=== PATIENT | female | born 1975 | race Caucasian/White ===

== ENCOUNTER → 2018-07-30 08:55 | Outpatient (CLI) | payer OTHER, SELFPAY ==
--- NOTE | 2018-07-30 08:58 | US_ITS ---
STUDY: THYROID ULTRASOUND REASON FOR EXAM: Female, 42 years old. Thyroid nodules. TECHNIQUE: Ultrasound evaluation of the thyroid was performed with real-time and static silva-scale imaging. COMPARISON: September 25, 2016. FINDINGS: RIGHT LOBE: The right lobe of the thyroid gland measures 4.5 x 1.9 x 1.3 cm. There is a homogeneous echotexture. Mid and lower pole cystic and solid nodules measuring 0.5 and 0.4 x 0.5 cm and 1.0 x 1.1 x 0.5 cm respectively. The mid pole cystic nodule has remained stable. The lower pole solid nodule is new. LEFT LOBE: The left lobe of the thyroid gland measures 4.4 x 1.4 x 1.4 cm. There is a homogeneous echotexture. There are now no demonstrated solid, cystic or complex lesions. ISTHMUS: The isthmus measures 3 mm. . The regional lymph nodes are normal. US/Thyroid IMPRESSION: New 1.1 cm solid nodule inferior pole right lobe. Stable subcentimeter cystic nodule midpole right lobe. Electronically Signed: Joni Osborne MD at 6:24 EDT , Service support ,
--- NOTE | 2018-07-30 09:34 | RAD_ITS ---
STUDY: X-RAY - ESOPHAGUS (BARIUM SWALLOW) WITH FLUOROSCOPY REASON FOR EXAM: Female, 42 years old. Dysphagia for solids. TECHNIQUE: 22 view(s) of the esophagus were obtained following swallowing of barium. FLUOROSCOPY TIME (if supplied): (0:42) minutes/seconds COMPARISON: None. FINDINGS: There is no demonstrated esophageal foreign body. Mild circumferential narrowing at the distal aspect of the esophagus at the level gastroesophageal junction. The patient ingested 12 mm tablet of barium. The tablet passes without any difficulty into the stomach. There is atherosclerotic tortuosity of the aortic arch and descending thoracic aorta. Normal visualized pulmonary parenchyma. Normal visualized osseous structures of the thorax. RAD/Esophagus Only IMPRESSION: Mild circumferential narrowing in the distal portion of the esophagus at the level of the gastroesophageal junction. The 12 mm tablet of barium passes without any difficulty. Electronically Signed: Abad Wylie, at 15:01 EDT , Service support ,
== END ==
LOC: US 08:55
PROVIDERS: Family Provider Internal Medicine; PCP Internal Medicine; Referring Provider Internal Medicine; Visit Provider Internal Medicine
DX: E04.2 Nontoxic multinodular goiter (principal); R13.10 Dysphagia, unspecified
CPT/HCPCS: 74220; 76536

== ENCOUNTER → 2018-08-12 15:54 | Outpatient (CLI) | payer OTHER, SELFPAY ==
[2018-08-12 07:52] VITALS: BMI 32.3
--- NOTE | 2018-08-12 16:00 | CT_ITS ---
STUDY: CT SOFT TISSUE NECK WITH CONTRAST REASON FOR EXAM: Female, 42 years old. Right-sided neck mass RADIATION DOSAGE (If Supplied By Facility): CTDIvol = ( 23.55 ) mGy, DLP = ( 723.43 ) mGycm TECHNIQUE: The patient was scanned in a multi-detector CT scanner. High resolution transaxial imaging was performed following intravenous administration of 100 ml of Isovue 300. Sagittal and coronal images were reconstructed. Individualized dose optimization techniques were used for this CT. COMPARISON: None. FINDINGS: Normal bilateral parotid glands. Normal bilateral ross furnace operator spaces. Normal bilateral parapharyngeal spaces. Normal bilateral carotid spaces. Normal bilateral sublingual and submandibular glands and spaces. Normal visualized nasopharynx. Normal retropharyngeal space. Normal perivertebral space. Normal visualized bilateral faucial tonsils. The visualized tongue, tongue base and oropharynx are normal. The visualized cervical lymph nodes (levels I-) are within normal size limits, and maintain normal morphology. There is no demonstrated solid or cystic mass lesion. There is no abnormal contrast enhancement. Normal epiglottis, bilateral vallecula and hypopharynx. The pre-epiglottic and paraglottic adipose spaces are normal. Normal visualized bilateral piriform sinuses, aryepiglottic folds, vocal cords, and arytenoid-cricoid articulations. Normal subglottic trachea. There is a small nodule in right lobe of the thyroid measuring approximately 3. Overall millimeters. The thyroid otherwise has a normal appearance. Normal visualized pulmonary apices. There is mild mucoperiosteal thickening within the right maxillary sinus. There is opacification of several posterior ethmoid sinuses. Normal visualized cervical spine. No clearly demonstrated subcutaneous or deep asymmetric neck mass noted. CT/Soft Tissue Neck WITH Contrast IMPRESSION: 1. There is no evidence for a soft tissue mass to explain the palpable abnormality. The exact location of the palpable abnormality is unknown at the time of dictation. 2. Small right-sided thyroid nodule. Mild maxillary sinus disease. Electronically Signed: Layla Becerril MD at 8:59 EDT , Service support ,
== END ==
LOC: CT 15:58
PROVIDERS: Family Provider Internal Medicine; PCP Internal Medicine; Referring Provider Internal Medicine; Visit Provider Internal Medicine
DX: R22.1 Localized swelling, mass and lump, neck (principal)
CPT/HCPCS: 70491; Q9967

== ENCOUNTER → 2018-08-22 12:04 | Outpatient (CLI) | payer OTHER, SELFPAY ==
[2018-08-12 07:52] VITALS: BMI 32.3
--- NOTE | 2018-08-22 12:09 | US_ITS ---
STUDY: THYROID ULTRASOUND REASON FOR EXAM: Female, 42 years old. Right thyroid nodule FNA biopsy. Ultrasound services provided for clinical procedure. Please refer to operating physician's procedure note for additional detail. TECHNIQUE: Ultrasound evaluation of the thyroid was performed with real-time and static silva-scale imaging. COMPARISON: July 30, 2018. FINDINGS: 7 submitted static images marked transverse right thyroid are submitted for interpretation and evaluation from FNA biopsy was performed by Dr. Walters. Presumably, the hypoechoic nodule within the right thyroid lobe with echogenic internal foci measuring 0.5 cm in maximum dimension on previous sonography dated July 30, 2018 was biopsied. The technologist work sheet indicates 18-gauge core biopsy with 3 samples taken. There are no significant incidental findings. US/FNA 1st Biopsy w/ US IMPRESSION: Ultrasound services provided for clinical procedure. Please refer to operating physician's procedure note for additional detail. There is no significant incidental finding. Sonographic services provided for clinical procedure. Please refer to operating physician's procedure note for additional detail. Electronically Signed: Fly Mariano MD at 8:08 EDT , Service support ,
--- NOTE | 2018-08-22 12:35 | ASPIG_PTH ---
PATIENT: SAV WOODALL LOC: U#:[id number] AGE/SX: 49/F ROOM: RE08/22/[address]: Dr. Ramon Walters MD : 1975 BED: DIS: SPEC #: [id number] RECD: 08/22/18 13:31 STATUS: TIFFANIE JOSE CRUZ #: [id number] TRICIA: 08/22/18 12:[address]: Ramon Walters DEPT: CYTOLOGY RECD BY: Michele Eaton ENTERED: 08/22/18 13:31 SP TYPE: ASP OUT OTHR DR: Dr. Jovita Soares, DO Tissues: Thyroid gland, NOS Procedures: FNA Specimen Adequacy Special Stain Group II Surgery Specimen Level IV Cytology Other HEADER OPERATION: Ultrasound-guided right thyroid biopsy PRE-OP DIAGNOSIS: Right thyroid nodule TISSUE SUBMITTED: Right thyroid biopsy DIAGNOSIS CYTOLOGY Right thyroid nodule, ultrasound-guided right thyroid biopsy, direct smears and monolayer cytology: Atypia of undetermined significance. See comment. CE:treva 08/28/18 COMMENT The specimen is evaluated at the time of biopsy by Dr. Negrete. Immediate Evaluation = Follicular cells noted. Adequate for evaluation. Groups of collicular cells show focal nuclear crowding and grooves. A papillary thyroid neoplasm cannot be entirely excluded. This case was reviewed in consultation with Anitra Gonzalez M.D. of [facility] (Specimen ID [id number]). CYTOLOGY STUDY Slides are reviewed. CYTOLOGY GROSS Received is 0.6 ml of bloody fluid labeled with the patient's name, and designated right thyroid. Eight imprints and seven paps are made from the submitted fluid and the rest is added to CytoLyt for cell block preparation. Submitted for cytology study. / MAXIMO:treva 08/22/18 TC:5 CPT: 61669
--- NOTE | 2018-08-22 12:44 | PCM.HP.BLA ---
Problem List (1) Multinodular goiter (nontoxic) Status: Acute History and Physical Date of Admission: 08/22/18 [facility] [address] [place], [place] [address] OFFICE VISIT Date of Service: 08/06/18 MR#: [id number] Acct: [id number] Name: SAV WOODALL Rep #: [id number] : 1975 Provider: Ramon Walters MD Age/Sex: 42/F Location: [facility] Status: Signed Intake Vital Signs 08/06/18 Height 5 ft 6 in 08/06/18 Weight: 200 lb 4 oz 08/06/18 Body Mass Index (BMI) 32.3 08/06/18 Blood Pressure 131/86 H 08/06/18 Blood Pressure Location Rt brachial 08/06/18 Blood Pressure Position Sitting 08/06/18 Respiratory Rate 20 H 08/06/18 Pulse Rate 74 08/06/18 Pulse Ox 100 Intake Visit Reasons: thyroid nodule - biopsy? Chief Complaint: thyroid nodules Waterproofing Supervisor Required: No Is patient in pain?: No Allergies No Known Allergies Allergy (Verified 08/06/18 14:44) Medications atenolol 25 mg tablet 25 mg PO DAILY 08/06/18 [History Confirmed 08/06/18] norethindrone (contraceptive) 0.35 mg tablet 0.35 mg PO DAILY 08/06/18 [History Confirmed 08/06/18] Is last menstrual period known: No Post menopausal: No Patient : No PFSH Medical History Anxiety (Acute) GERD (gastroesophageal reflux disease) (Acute) Hemorrhoid (Acute) Multiple thyroid nodules (Acute) HTN (hypertension) (Chronic) Surgical History History of arthroscopic knee surgery (Acute) Status post biopsy of thyroid gland (Acute ~2014) Family History Mother Hypertension Brother Hypertension Social History Smoking Status: Never smoker HPI HPI HPI: SAV WOODALL, is a 42 F who presents to the office today for HPI HPI HPI: SAV WOODALL, is a 42 F who presents to the office today for evaluation of multinodular goiter. Patient [facility]. This showed a new 1.1 x 1 x 0.5 cm nodule in the midpole she has a stable 5 mm nodule in the midpole as well. The left lobe had no nodules located within it. She has not noticed any new neck pain she has had no change in her voice ROS General General: Yes fatigue; no weight change, appetite, colon cancer, breast cancer or weakness HEENT HEENT: Yes difficulty swallowing; no eye injury, eye surgery, swollen glands or hoarseness Endo Endocrine: No thyroid disease, diabetes mellitus, thyroid cancer, Hair loss, heat intolerance or cold intolerance Cardio Cardiovascular: Yes high blood pressure; no murmur, pacemaker, heart disease, atrial fibrillation, heart attack, heart stent, palpitations, shortness of breat with exertion or chest pain Psych Psychiatric: Yes anxiety; no depression or hearing voices Resp Respiratory: No shortness of breath, No sleep apnea, No cough, No COPD, No asthma, No emphysema, No wheezing Gastro Gastrointestinal: No abdominal pain, No nausea or vomiting, No diarrhea, No constipation, No blood in stool, Yes acid reflux, Yes hemorrhoids, No ulcers, No gallbladder problem, No black,tarry stools Neuro Neurologic: No weakness Exam [facility] Head: normocephalic, atraumatic Ears: external ears normal Mouth: moist mucous membranes Other: Thyroid Exam: No hard nodules are palpated. There is no lymphadenopathy Cardio Heart Sounds: no murmurs Assessment & Plan Problems 1. Multinodular goiter (nontoxic) E04.2 Plan My plan is to perform a fine-needle aspiration of the dominant new nodule located on the right side. Risk benefits have been reviewed with the patient to include bleeding soreness possible in fact she agrees to proceed Medications New: norethindrone (contraceptive) 0.35 mg PO DAILY Coding Level of Care Code Off vis,est,level 3 Diagnoses Multinodular goiter (nontoxic) E04.2 08/06/18 1500 <Electronically signed by Ramon Walters MD> Date Ramon Walters MD Cosigner Signature: Date (if applicable) CC: Jovita Soares DO ~
--- NOTE | 2018-08-22 12:44 | PCM.OPRPT ---
Problem List (1) Multinodular goiter (nontoxic) Status: Acute Report of Operation Date of Procedure: 08/22/18 Pre-Operative Diagnosis: Multinodular goiter Post-Operative Diagnosis: Same Surgery/Procedure Performed:: Ultrasound-guided fine-needle aspiration of dominant right thyroid nodule Type of Anesthesia:: Local Description of Procedure: Patient was in the supine position. Right neck was ultrasound. Skin with prepped with Betadine. 1% lidocaine plain was injected. Under ultrasound guidance 3 passes with a 22-gauge needle were performed. These were given to the pathologist. Pathologist stated we had an adequate number of follicular cells. Sterile dressings were applied. The patient tolerated the procedure well. - Admit VTE Documentation VTE Present on Admission: No VTE Mechan Device Prophylaxis: None VTE Pharm Prophylaxis ordered?: No Reason prophylaxis not ordered:: Treatment Not Indicated
== END ==
LOC: US 12:06
PROVIDERS: Family Provider Internal Medicine; PCP Internal Medicine; Referring Provider Surgery; Visit Provider Surgery
DX: E04.2 Nontoxic multinodular goiter (principal); I10 Essential (primary) hypertension
CPT/HCPCS: 10005; 76536; 88161; 88172; 88305; 88313

== ENCOUNTER 2018-09-11 06:00 | Day surgery (SDC) | payer OTHER, SELFPAY ==
--- NOTE | 2018-08-12 07:52 | HP_ITS ---
Intake Intake Visit Reasons: FNA R Thyroid BX Allergies No Known Allergies Allergy (Verified 08/06/18 14:44) Medications atenolol 25 mg tablet 25 mg PO DAILY 08/06/18 [History Confirmed 08/06/18] norethindrone (contraceptive) 0.35 mg tablet 0.35 mg PO DAILY 08/06/18 [History Confirmed 08/06/18] PFSH Medical History Anxiety (Acute) GERD (gastroesophageal reflux disease) (Acute) Hemorrhoid (Acute) Multiple thyroid nodules (Acute) HTN (hypertension) (Chronic) Surgical History History of arthroscopic knee surgery (Acute) Status post biopsy of thyroid gland (Acute ~2013) Family History Mother Hypertension Brother Hypertension Social History Smoking Status: Never smoker HPI HPI HPI: SAV WOODALL, is a 42 F who presents to the office today for HPI HPI Surgical H&P: Yes HPI: SAV WOODALL, is a 42 F who presents to the office today for a fine-needle aspiration of her right thyroid gland. However during the procedure I was unable to identify this new lesion on the inferior aspect of her right thyroid gland. I can clearly see it on the ultrasound that was completed at the hospital but using my machine it is just not visual. We are going to have to get her rescheduled at the hospital for an ultrasound-guided fine-needle aspiration of a new nodule in the inferior lobe of the right thyroid gland Exam HENMT Other: No hard palpable nodules identified Assessment & Plan Problems 1. Multinodular goiter (nontoxic) E04.2 Plan My plan is to perform an Ultrasound guided fine-needle aspiration of the new nodule in the inferior portion of the right thyroid lobe. Coding Level of Care Code No Charge Diagnoses Multinodular goiter (nontoxic) E04.2 08/12/18 0753 <Electronically signed by Ramon Walters MD> Date Ramon Walters MD I have re-examined the patient. There are no clinical changes since date of exam.
[2018-09-03 09:52] VITALS: BMI 32.3
[2018-09-11] VITALS (11 sets, daily range): BP systolic 96–133; BP diastolic 53–92; PULSE 68–90; RESP 16; TEMP 36.2–36.9; O2SAT 91–98; BMI 33.8
--- NOTE | 2018-09-11 | IMM_PTH ---
PATIENT: SAV WOODALL [place] [facility] [id number] AGE/SX: 42/F ROOM: RE09/11/[address]: Dr. Ramon Walters MD : 1975 BED: DIS: 09/12/2018 SPEC #: [id number] RECD: 09/12/18 14:27 STATUS: TIFFANIE REQ #: [id number] TRICIA: 09/11/18 00:[address]: Ramon Walters DEPT: IMMUNOHISTOCHEMISTRY RECD BY: Naz Hi ENTERED: 09/12/18 14:29 SP TYPE: IMMUNO OTHR DR: Dr. Jovita Soares DO Tissues: Thyroid gland, NOS Procedures: HBME (initial) CD56 (add) CK19 (add) GAL-3 (add) PHYSICIAN & INSTITUTION [place] [id number] SPECIMEN INFORMATION: Tissue Source: Right thyroid lobe Clinical Info: Multinodular goiter Specimen Number: [id number] #2 CPT code: 69840, 00066 x3 METHODOLOGY: Deparaffinized sections of prefer/formalin-fixed tissue or PAP/DQ stained slides are incubated with monoclonal/polyclonal antibodies/oligonucleotide probes. Localization is made via biotin free immunoperoxidase method. Appropriate controls are performed and reacted as expected. Results on target cell population are indicated in the following table: RESULTS: ANTIBODY / CLONE RESULT Block 2 HBME1 (HBME-1) positive CK19 (A53-B/A2.26) positive GAL3 (9C4) positive CD56 (123C3.D5) positive These tests were developed and their performance characteristics determined by [facility]. They may not have been cleared or approved by the U.S. Food and Drug Administration. The FDA has determined that such clearance or approval is not necessary. INTERPRETATION: Right thyroid lobe: Incidental papillary thyroid carcinoma. AM:treva 09/16/18
--- NOTE | 2018-09-11 | THYROID_PTH ---
PATIENT: SAV WOODALL LOC: [facility] [place] U#:[id number] AGE/SX: 42/F ROOM: RE09/11/[address]: Dr. Ramon Walters MD : 1975 BED: DIS: 09/12/2018 SPEC #: [id number] RECD: 09/11/18 08:20 STATUS: TIFFANIE JOSE CRUZ #: [id number] TRICIA: 09/11/18 00:[address]: Ramon Walters DEPT: SURGICAL PATHOLOGY RECD BY: Naz Hi ENTERED: 09/11/18 08:51 SP TYPE: THYROID OTHR DR: Dr. Jovita Soares DO Tissues: Thyroid gland, NOS Procedures: Frozen Section (charge) Surgery Specimen Level V HEADER OPERATION: Thyroid lobectomy PRE-OP DIAGNOSIS: Multinodular goiter TISSUE SUBMITTED: Right thyroid lobe sent at 0815 FROZEN SECTION DIAGNOSIS Right thyroid lobe, lobectomy: Colloid nodule. Minute fragment of parathyroid tissue. AM:treva 09/11/18 Case has been reviewed in consultation with Dr. Perez who concurs with the above diagnosis. IDC:CE MICROSCOPIC DIAGNOSIS Right thyroid lobe, lobectomy: Colloid nodules. 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 Margins of excision are free of carcinoma. See cancer checklist below. AM:treva 09/12/18 COMMENT THYROID CANCER SUMMARY: Procedure - right thyroid lobectomy Specimen integrity - intact specimen Specimen size - 5 x 2.5 x 1.5 cm Specimen weight - 7.2 gm Tumor focality - unifocal Dominant tumor: Tumor laterality - right lobe Tumor size - 3 x 3 mm (from glass slides) Histologic type - papillary carcinoma Variant - classical Architecture - classical Cytomorphology - classical Margins - uninvolved by carcinoma Tumor capsule - totally encapsulated Tumor capsular invasion - not identified Lymph-Vascular invasion - not identified Extrathyroidal extension - not present Lymph nodes - one benign lymph node Other findings - colloid nodules and minimal chronic inflammation. PATHOLOGIC STAGE: pT1a N0 Mx The above summary is in compliance with [employer] [place] [employer] (CAP) Cancer Protocols Checklist and [place] Joint Committee on Cancer (AJCC), Staging Manual, 8th Ed. Immunohistochemistry ([id number]) supports the above diagnosis. MICROSCOPIC DESCRIPTION Slides are reviewed. GROSS DESCRIPTION Received fresh for frozen section consultation labeled with the patient's name is a specimen designated right lobe of thyroid. The specimen consists of a lobe of thyroid measuring 5 x 2.5 x 1.5 cm and weighing 7.2 gm. The specimen is inked and serially sectioned to a reveal a somewhat gelatinous cut surface. A petroleum products sales representative section is submitted for frozen section consultation. The remainder of the specimen is submitted in its entirety in cassettes 2-5. / AM:treva 09/11/18 TC:0 CPT: 78999, 75888
--- NOTE | 2018-09-11 06:14 | EKG12_ITS ---
Test Reason : PRE OP Blood Pressure : / mmHG Vent. Rate : 069 BPM Atrial Rate : 069 BPM P-R Int : 170 ms QRS Dur : 092 ms QT Int : 418 ms P-R-T Axes : 022 029 040 degrees QTc Int : 447 ms Normal sinus rhythm Normal ECG When compared with ECG of 26-FEB-2014 19:49, Vent. rate has decreased BY 36 BPM Nonspecific T wave abnormality no longer evident in Inferior leads Nonspecific T wave abnormality no longer evident in Lateral leads Confirmed by EL TERRAZAS ([id number]), acquisition editor MARINA LU ([id number]) on 09/17/2018 1:05:18 PM Referred By: Ramon aWlters Confirmed By:KATHERINE TERRAZAS
[2018-09-11 06:29] LABS: Internal QC Validated? YES +Cl - CLEAR BKGD; Pregnancy, Urine Negative Negative
[2018-09-11 06:33] LABS: Hematocrit 42.6 % (37-47); Hemoglobin 13.9 g/dl (12.0-15.0); Mean Corp Hgb Conc 32.6 g/gl (32-36); Mean Corpuscular Hgb 27.3 pg (27.0-32.0); Mean Corpuscular Volume 83.5 fL (81-99); Platelet Count 189 K/mm3 (150-450); RBC Distribution Width SD 39.4 fl (35.1-43.9); Scan Indicated on CBC? Y/N NO
[2018-09-11 06:53] LABS: Anion Gap 8 (5-15); BUN 9 mg/dL (7-18); BUN/Creat Ratio 12.2 RATIO (10-20); Calcium,Total 8.6 mg/dL (8.5-10.1); Chloride 110 mmol/L (98-107); Creatinine, Serum 0.74 mg/dL (0.55-1.02); EST Glomerular Filtration Rate 92 mL/min (>60); Est Glom Filt Rate - Afr Amer 111 mL/min (>60); Estimated Creatinine Clearance 93.66 ml/min; Glucose 109 mg/dL (74-106); Potassium 3.9 mmol/L (3.5-5.1); Sodium Level 141 mmol/L (136-145)
--- NOTE | 2018-09-11 07:08 | PCM.OPRPT ---
Problem List (1) Multinodular goiter (nontoxic) Status: Acute Report of Operation Date of Procedure: 09/11/18 Pre-Operative Diagnosis: Multinodular goiter with dominant right thyroid nodule Post-Operative Diagnosis: Same Surgery/Procedure Performed:: Right sided thyroid lobectomy Type of Anesthesia:: General Anesthesiologist: Andrae Rhodes Specimen's removed: Right thyroid Description of Procedure: Patient was brought into the operating room. Placed in the supine position. Under excellent general trach intubation, was placed underneath the shoulder blades and the neck was extended. Neck was then sterilely prepped and draped in usual fashion. Local was injected. Cervical incision was made. Subplatysmal flaps were created. Gelpi retractor was placed in the wound. Midline strap muscles were opened. I started on the right side went to the superior pole vessels took these down with a harmonic dissector. Came down to the middle thyroidal vein down with a harmonic dissector. Then went to the inferior pole vessels and took these down with a harmonic dissector. Rotated the gland from lateral to medial standpoint the nerve was away from the thyroid itself was not visualized. I took the various ligaments with the harmonic dissector and rotated the gland off of the trachea and then transected it on the left side of the thyroid gland I sent it to pathology frozen section did not show any signs of malignancy there was a small piece of parathyroid tissue though. I reinspected the wound clearly saw the superior parathyroid gland and I identified what I thought was the inferior parathyroid gland. I good hemostasis. I placed a small piece of Surgicel in the wound. Midline strap muscles were brought together with a 2-0 Vicryl. Subplatysmal flaps were brought together with a 3-0 Vicryl deep dermal stitches of 3-0 Vicryl then a running 4-0 Monocryl Dermabond was applied sterile dressings were applied and the patient tolerated the procedure well. - Admit VTE Documentation VTE Present on Admission: No VTE Mechan Device Prophylaxis: SCD's VTE Pharm Prophylaxis ordered?: No Reason prophylaxis not ordered:: Treatment Not Indicated
[2018-09-11] MEDS: Cefazolin 2 GM in 0.9% Normal Saline 100 ML IV (07:33)
[2018-09-11] MEDS: BUPIVACAINE LIPOSOME/PF 20 ML VIAL OPERA.SITE (08:35)
--- NOTE | 2018-09-11 08:51 | NURSING ---
Pt able to appropriately state the letter E
[2018-09-11] MEDS: Lactated Ringers 1,000 ML 65 ML IV (10:29)
[2018-09-11] MEDS: Ibuprofen 400 MG Tablet 800 MG PO (14:26)
[2018-09-11] MEDS: oxyCODONE 5 MG Tablet PO (21:30)
[2018-09-11] MEDS: Atenolol 25 MG Tablet PO (21:30)
[2018-09-12 02:06] VITALS: BP 120/67; PULSE 71; RESP 18; TEMP 36.8; O2SAT 95
[2018-09-12] MEDS: Lactated Ringers 1,000 ML 65 ML IV (02:13)
[2018-09-12] MEDS: Ibuprofen 400 MG Tablet 800 MG PO (02:13)
--- NOTE | 2018-09-12 07:13 | DCINST_ITS ---
Discharge Diet: Light diet - advance as tolerated - If you have questions about your diet instructions, please talk to your doctor. Discharge Activity: May Not Drive - for 1 week or while taking narcotic pain medicine. May shower in (days): 1 Lifting Restrictions: 10 pounds Call your doctor if your incision/area has: Continuous Slow Oozing, Sudden Increased Bleeding, Increased Pain/ Swelling, Increased Redness, Foul Smelling Discharge Call your doctor if you observe: Fever of 101 or Higher Suture Line Care: Avoid Pulling/Pushing, Avoid Pinching/Bending Additional Dressing/Incision Instructions:: Change or remove dressing in 4 days. Leave steri-strips in place for 1 week. Allergies/Adverse Reactions: Allergies No Known Allergies Allergy (Verified 09/08/18 14:48) Medications to take at Discharge atenolol 25 mg tablet 25 mg PO BID 08/06/18 norethindrone (contraceptive) 0.35 mg tablet 0.35 mg PO DAILY 08/06/18 Oxycodone HCl/Acetaminophen [Percocet 5/325] 1 - 2 tab PO Q4H PRN PRN 6 Days #30 tab 09/11/18 The following prescriptions were given: Oxycodone HCl/Acetaminophen [Percocet 5/325] 1 - 2 tab PO Q4H PRN PRN 6 Days #30 tab PRN Reason: Pain Primary Care Physician: Jovita Soares DO [Primary Care Provider] - Test Results: Test results from this visit will be discussed in further detail at your follow- up appointment, if applicable. Please Follow Up With: Ramon Walters MD - [phone] When: Call to make an appointment to be seen in about 10 days.
[2018-09-12 08:00] VITALS: BP 125/76; PULSE 74; RESP 18; TEMP 36.6; O2SAT 97
[2018-09-12] MEDS: Atenolol 25 MG Tablet PO (08:48)
== END 2018-09-12 10:05 | disposition home or self-care (01) ==
LOC: SDC 06:01 → AC 06:03 → MS3 10:03
PROVIDERS: Anesthesiology; Family Provider Internal Medicine; PCP Internal Medicine; Referring Provider Surgery; Visit Provider Surgery
PROC: (CPT 60220; principal; 2018-09-11 07:00)
DX: E04.2 Nontoxic multinodular goiter (principal); I10 Essential (primary) hypertension
CPT/HCPCS: 00320; 60220; 36415; 80048; 81025; 85027; 88307; 88331; 88341; 88342; 93005; J7120; J2405

== ENCOUNTER → 2024-01-01 | Outpatient (CLI) | payer OTHER, SELFPAY ==
--- NOTE | 2024-01-01 13:17 | BI_ITS ---
MAMMOGRAPHY - BILATERAL SCREENING REASON FOR EXAM: Female, 48 years old. Routine annual screening examination. PERTINENT HISTORY: Aunt with breast cancer. TECHNIQUE: Digital bilateral breast bhanu (3D mammographic acquisition) in the CC and MLO projections. 2-D mediolateral oblique (MLO) and craniocaudad (CC) views of both breasts were obtained. CAD: Full Field Digital Mammography with Computer Added Detection was performed. COMPARISON: Comparison is made with prior outside examination dated December 30, 2020. FINDINGS: Breast Composition: The breasts are heterogeneously dense, which may obscure small masses. There are no dominant masses or suspicious calcifications. Stable bilateral axillary lymph nodes. No other significant abnormalities are identified. There has been no significant change since the prior study. BI/SCRN MAMM (CAD)W/BHANU BILAT IMPRESSION: Stable bilateral screening mammogram. Yearly follow-up mammogram recommended. (A) ASSESSMENT CATEGORY: BIRADS Category 2: Benign. A letter regarding these results will be sent to the patient by the facility within 30 days. Approximately 10% of breast cancers are not detected by mammography. A normal mammogram should not delay biopsy of a clinically suspicious abnormality. [id number] Electronically Signed: bAad Wylie MD at 10:52 EDT ,
--- NOTE | 2024-01-01 13:17 | US_ITS ---
STUDY: THYROID ULTRASOUND REASON FOR EXAM: Female, 48 years old. Previous right thyroidectomy TECHNIQUE: Ultrasound evaluation of the thyroid was performed with real-time and static silva-scale imaging. COMPARISON: 2018 FINDINGS: RIGHT LOBE: Previously removed LEFT LOBE: The left lobe of the thyroid gland measures 5.0 x 1.7 x 1.7 cm. There is a homogeneous echotexture. There are 2 separate complex cysts. Larger measures 0.5 x 0.4 x 0.2 cm. ISTHMUS: The isthmus measures 3 mm. The regional lymph nodes are normal. US/Head/Neck Soft Tissue IMPRESSION: Borderline enlarged left lobe of the thyroid with 2 separate slightly complex cysts, larger measures 0.5 x 0.4 x 0.2 cm. No specific follow-up is needed. There is no suspicious hypoechoic nodule or adenopathy noted. Electronically Signed: Sreedhar Hammonds MD at 11:06 EDT ,
== END | disposition home or self-care (01) ==
PROVIDERS: PCP Nurse Practitioner Family; Referring Provider Nurse Practitioner Family; Visit Provider Nurse Practitioner Family
DX: C73 Malignant neoplasm of thyroid gland (principal); Z12.31 Encounter for screening mammogram for malignant neoplasm of breast
CPT/HCPCS: 76536; 77063; 77067